=== PATIENT | male | born 1985 | race Caucasian/White ===

== ENCOUNTER 2018-02-01 14:49 | Emergency (ER) | payer SELFPAY ==
[~2018-02-01] VITALS: Ht 170.2 cm; Wt 59.0 kg
[2018-02-01 15:30] VITALS: BP 116/72
--- NOTE | 2018-02-01 15:32 | Emergency Room Report ---
History of Present Illness General Chief Complaint: Skin Rash/Abscess Source: Patient Present Illness Allergies: Coded Allergies: No Known Allergies (Unverified , 02/01/18) Nursing Documentation-[facility] Past Medical History: No Stated History Physical Exam Vital Signs Date Time Temp Pulse Resp B/P (MAP) Pulse Ox O2 Delivery O2 Flow Rate FiO2 02/01/18 15:07 97.4 73 18 116/72 99 Room Air 97.3 Medical Decision Making Diagnostic Impression: Primary Impression: Rash and other nonspecific skin eruption Last Vital Signs Date Time Temp Pulse Resp B/P (MAP) Pulse Ox O2 Delivery O2 Flow Rate FiO2 02/01/18 15:07 97.4 73 18 116/72 99 Room Air 97.3 Disposition: HOME, SELF-CARE Condition: Stable Scripts No Active Prescriptions or Reported Meds Patient Instructions: Rash Additional Instructions: Take medications as directed. Follow up with a Primary Care Provider in 3-5 days, FOR DERMATOLOGY EVALUATION if your symptoms have not resolved. --Please review list of primary care clinics, if you do not already have a primary care provider Return sooner to ED if new symptoms occur, or current symptoms become worse. - Please note that this Emergency Department Report was dictated using [employer] technology software, occasionally this can lead to erroneous entry secondary to interpretation by the dictation equipment. Scarlett Gambino Feb 01, 2018 15:32
[2018-02-01] MEDS ORDERED: PERMETHRIN60 GM TOPIC (15:33)
[2018-02-01] MEDS ORDERED: HYDROCORTISONE30 G2 TP (15:33)
[2018-02-01 15:45] VITALS: BP 116/72
== END 2018-02-01 16:00 | disposition home or self-care (01) ==
LOC: EMR 15:46
DX: R21 Rash and other nonspecific skin eruption (principal); L02.91 Cutaneous abscess, unspecified
CPT/HCPCS: 99282